=== PATIENT | female | born 1980 | race Two or more races ===

== ENCOUNTER 2020-12-20 12:23 | Emergency (ER) | payer OTHER ==
[~2020-12-20] VITALS: Ht 167.6 cm; Wt 95.3 kg
[2020-12-20] MEDS ORDERED: PREDNICARBATE (12:45)
[2020-12-20] MEDS ORDERED: TYLENOL ARTHRI650 MG (12:46)
[2020-12-20] MEDS ORDERED: PROAIR RESPICL90 MCG IH (18:51)
[2020-12-20] MEDS ORDERED: MEDROLPACK PO (18:51)
[2020-12-20] MEDS ORDERED: TUSNEL LIQUID178 ML PO (18:51)
[2020-12-20] MEDS ORDERED: ZITHROMAX500 MG PO (18:51)
== END 2020-12-20 19:57 | disposition home or self-care (01) ==
LOC: ER 12:23
DX: J22 Unspecified acute lower respiratory infection (principal); U07.1 COVID-19

== ENCOUNTER 2020-12-27 09:00 | Outpatient (CLI) | payer OTHER ==
[~2020-12-27 09:00] MED LIST: MEDROLPACK PO; PREDNICARBATE; PROAIR RESPICL90 MCG IH; TUSNEL LIQUID178 ML PO; TYLENOL ARTHRI650 MG; ZITHROMAX500 MG PO
== END 2020-12-27 12:00 | disposition home or self-care (01) ==
LOC: ASH CLINIC 09:00
PROVIDERS: ATTEND General Practice
DX: Z23 Encounter for immunization (principal); U07.1 COVID-19

== ENCOUNTER → 2021-01-13 | Emergency (ER) | payer OTHER | END | disposition left against medical advice (07) | LOC: ER 15:57 | DX: Z53.21 Procedure and treatment not carried out due to patient leaving prior to being seen by health care provider (principal) ==